=== PATIENT | male | born 1990 | race Caucasian/White ===

== ENCOUNTER 2021-01-01 21:15 | Emergency (ER) | payer BC ==
[~2021-01-01] VITALS: Ht 188 cm; Wt 100.0 kg
[2021-01-01 22:00] VITALS: BP 123/73
[2021-01-01] MEDS ORDERED: AMOXICILLIN500 MG PO (22:18)
== END 2021-01-01 22:35 | disposition home or self-care (01) | DRG 605 ==
LOC: ED 21:15
PROC: 0HQ1XZZ Repair Face Skin, External Approach (ICD-10-PCS; principal; 2021-01-01)
DX: S01.81XA Laceration without foreign body of other part of head, initial encounter (principal); W22.09XA Striking against other stationary object, initial encounter; Y92.007 Garden or yard of unspecified non-institutional (private) residence as the place of occurrence of the external cause